=== PATIENT | male | born 1990 | race Caucasian/White ===

== ENCOUNTER 2017-06-04 10:23 | Emergency (ER) | payer SELFPAY ==
[~2017-06-04] VITALS: Ht 172.7 cm; Wt 86.4 kg
[~2017-06-04 10:23] MED LIST: NO HOME MEDICATIONS; PERCOCET 325 MG1 TA2 PO; ULTRAM 50MG TAB50 MG PO
[2017-06-04 10:25] VITALS: BP 133/80; TEMP 98.5
[2017-06-04] MEDS ORDERED: PREDNISONE20 MG PO (11:30)
[2017-06-04] MEDS ORDERED: RISPERDAL 0.5M0.5 MG PO (11:30)
[2017-06-04 11:40] VITALS: PULSE 85
== END 2017-06-04 11:41 | disposition home or self-care (01) ==
LOC: COL.ER 10:23
DX: T78.40XA Allergy, unspecified, initial encounter (principal); R21 Rash and other nonspecific skin eruption; R22.0 Localized swelling, mass and lump, head; S60.422A Blister (nonthermal) of right middle finger, initial encounter; Z76.0 Encounter for issue of repeat prescription
CPT/HCPCS: J7512